=== PATIENT | male | born 1950 | race Two or more races ===

== ENCOUNTER 2023-06-29 18:40 | Inpatient (IN) | payer MEDICARE, OTHER ==
[~2023-06-29] VITALS: Ht 170.2 cm; Wt 81.6 kg
[2023-06-29 20:03] LABS: BASOPHILS # (AUTO) 0.1 K/uL (0.0-0.2); BASOPHILS % (AUTO) 1.1 % (0.0-2.0); EOSINOPHILS # (AUTO) 0.2 K/uL (0.0-0.7); EOSINOPHILS % (AUTO) 3.3 % (0.0-6.0); HEMATOCRIT 37 % (39-51); HEMOGLOBIN 12.5 g/dL (13.5-17.5); LYMPHOCYTES # (AUTO) 2.2 K/uL (0.8-4.8); LYMPHOCYTES % (AUTO) 40.9 % (20.0-44.0); MEAN CORPUSCULAR HEMOGLOBIN 37 PG (26.0-33.0); MEAN CORPUSCULAR HGB CONC 34 g/dl (31.0-36.0); MEAN CORPUSCULAR VOLUME 110 fL (80-96); MONOCYTES # (AUTO) 0.6 K/uL (0.1-1.30); MONOCYTES % (AUTO) 10.9 % (2.0-12.0); NEUTROPHILS # (AUTO) 2.4 K/uL (1.8-8.9); NEUTROPHILS % (AUTO) 43.8 % (43.0-81.0); PLATELET COUNT (AUTO) 162 K/uL (150-450); RED BLOOD CELL COUNT(AUTO) 3.35 MIL/uL (4.5-6.0); RED CELL DISTRIBUTION WIDTH 14.1 % (11.5-15.0); WHITE BLOOD COUNT (AUTO) 5.5 K/uL (4.3-11.0)
[2023-06-29 20:13] LABS: CARBON DIOXIDE 26 mmol/L (21-32); CHLORIDE 108 mmol/L (98-107); CREATININE 1.5 mg/dL (0.6-1.3); GLUCOSE 94 mg/dL (74-106); POTASSIUM 4.6 mmol/L (3.5-5.1); SODIUM SERUM 139 mmol/L (136-145); UREA NITROGEN, BLOOD 29 mg/dL (7-18)
[2023-06-29 20:15] LABS: APPEARANCE,URINE CLEAR (CLEAR); BILIRUBIN,URINE NEGATIVE (NEGATIVE); BLOOD, URINE NEGATIVE Ery/uL (NEGATIVE); COLOR,URINE YELLOW (YELLOW); KETONES,URINE TRACE mg/dL (NEGATIVE); LEUKOCYTE ESTERASE ,URINE NEGATIVE (NEGATIVE); NITRITE, URINE NEGATIVE (NEGATIVE); PROTEIN,URINE NEGATIVE (NEGATIVE); UGLUCOSE NEGATIVE (NEGATIVE); UROBILINOGEN,URINE 0.2 EU/dL (0.2)
[2023-06-29] MEDS ORDERED: OXYC5TAB3 PO (20:18)
[2023-06-29] MEDS ORDERED: MAGN400O6 PO (20:18)
[2023-06-29] MEDS ORDERED: AMIT10TA6 PO (20:18)
[2023-06-29] MEDS ORDERED: SODI45SP6 BNOSTRILS (20:18)
[2023-06-29] MEDS ORDERED: LOSA25TA27 PO (20:18)
[2023-06-29] MEDS ORDERED: MELA3TAB41 PO (20:18)
[2023-06-29] MEDS ORDERED: POLY15DR31 EACHEYE (20:18)
[2023-06-29] MEDS ORDERED: BISA10SU11 RC (20:18)
[2023-06-29] MEDS ORDERED: B CO1TAB6 PO (20:18)
[2023-06-29] MEDS ORDERED: MINE133E RC (20:18)
[2023-06-29] MEDS ORDERED: ATOR10TA PO (20:18)
[2023-06-29] MEDS ORDERED: POLY17PO4 PO (20:18)
[2023-06-29] MEDS ORDERED: ACET325T53 PO (20:18)
[2023-06-29] MEDS ORDERED: SENN-261 PO (20:18)
[2023-06-29] MEDS ORDERED: ASPI-1169 PO (20:18)
[2023-06-29] MEDS ORDERED: GABA300C PO (20:18)
[2023-06-29] MEDS ORDERED: ESCI5TAB PO (20:18)
[2023-06-29] MEDS ORDERED: VITS42.53 TP (20:18)
[2023-06-29 20:35] LABS: AMPHETAMINE, URINE NEGATIVE (NEGATIVE); BARBITURATE, URINE NEGATIVE (NEGATIVE); BENZODIAZEPINE, URINE NEGATIVE (NEGATIVE); CANNABINOID, URINE NEGATIVE (NEGATIVE); COCCAINE, URINE NEGATIVE (NEGATIVE); OPIATE, URINE NEGATIVE (NEGATIVE); PHENCYCLIDINE SCREEN,URINE NEGATIVE (NEGATIVE)
[2023-06-29 20:37] LABS: ALANINE AMINOTRANSFERASE 43 U/L (12-78); ALBUMIN 2.7 g/dL (3.4-5.0); ALCOHOL, BLOOD < 3 mg/dL (0-10); ALKALINE PHOSPHATASE 253 U/L (46-116); ASPARTATE AMINOTRANSFERASE 52 U/L (15-37); BILIRUBIN,DIRECT 0.3 mg/dL (0.0-0.2); BILIRUBIN,TOTAL 0.8 mg/dL (0.2-1.0); TOTAL PROTEIN, SERUM 8.1 g/dL (6.4-8.2)
[2023-06-29 20:38] LABS: ACETAMINOPHEN <10 ug/ml (10-30); SALICYLATE 1.8 mg/dL (2.8-20.0)
[2023-06-29 20:43] LABS: ANISOCYTOSIS 1+; EOSINOPHILS % (MANUAL) 4 % (0-4); LYMPHOCYTES % (MANUAL) 32 % (16-48); MONOCYTES % (MANUAL) 4 % (0-11.0); NEUTROPHILS % (MANUAL) 60 (42-76); PLATELET ESTIMATE ADEQU
[2023-06-29 20:44] LABS: ROULEAUX RARE
[2023-06-29 20:51] LABS: ADD URINE CULTURE NO; BACTERIA,URINE None seen /HPF (None Seen); RBC,URINE 0-2 /HPF (0-2); SQUAMOUS EPITHELIAL CELL,UR 0-2 /HPF (None Seen); WBC,URINE 0-2 /HPF (0-3)
[2023-06-30] MEDS ORDERED: BISACODYL SUPP (10 MG) 10 MG/SUPP.RECT SUPP.RECT RC PRN
[2023-06-30] MEDS ORDERED: POLYVINYL ALCOHOL 15 ML BOTTLE EACHEYE PRN (01:30)
[2023-06-30] MEDS ORDERED: QUETIAPINE FUMARATE 25 MG TABLET PO PRN (02:30)
[2023-06-30] MEDS ORDERED: ZOLPIDEM TARTRATE 5 MG TABLET PO PRN (02:30)
[2023-06-30] MEDS ORDERED: ACETAMINOPHEN 325 MG TABLET PO PRN (02:30)
[2023-06-30] MEDS ORDERED: MAG HYDROX/AL HYDROX/SIMETH 30 ML UDC PO PRN (02:30)
[2023-06-30] MEDS: BLOOD SUGAR DIAGNOSTIC 1 EACH STRIP IN ONE (02:56)
[2023-06-30] MEDS ORDERED: Z GUARD REMEDY 4 OZ OINT TP PRN (03:00)
[2023-06-30 03:12] VITALS: BP 123/76; TEMP 98; O2SAT 98
[2023-06-30 08:00] VITALS: BP 103/66; TEMP 97.5; O2SAT 98
[2023-06-30] MEDS: GABAPENTIN 300 MG CAPSULE PO SCH (08:59)
[2023-06-30] MEDS: ASPIRIN 81 MG TAB.CHEW PO SCH (08:59)
[2023-06-30] MEDS: POLYETHYLENE GLYCOL 3350 17 GM POWD.PACK PO SCH (08:59)
[2023-06-30] MEDS: SENNOSIDES 8.6 MG TABLET PO SCH (08:59)
[2023-06-30] MEDS: LOSARTAN POTASSIUM 25 MG TABLET PO SCH (09:00)
[2023-06-30 15:57] VITALS: BP 105/60; TEMP 98.8; O2SAT 98
[2023-06-30 17:07] LABS: THYROID STIMULATING HORMONE 1.579 uIU/mL (0.358-3.74)
[2023-06-30] MEDS: QUETIAPINE FUMARATE 25 MG TABLET PO SCH (21:07)
[2023-06-30] MEDS: ATORVASTATIN 10 MG TABLET PO SCH (21:39)
[2023-06-30 21:49] VITALS: BP 119/61; TEMP 98.1; O2SAT 97
[2023-06-30] MEDS ORDERED: AMITRIPTYLINE HCL 10 MG TABLET PO SCH (22:00)
[2023-06-30] MEDS: AMITRIPTYLINE HCL 25 MG TABLET PO SCH (22:05)
[2023-07-01 07:19] LABS: BASOPHILS # (AUTO) 0.1 K/uL (0.0-0.2); BASOPHILS % (AUTO) 1.2 % (0.0-2.0); EOSINOPHILS # (AUTO) 0.3 K/uL (0.0-0.7); EOSINOPHILS % (AUTO) 5.3 % (0.0-6.0); HEMATOCRIT 34 % (39-51); LYMPHOCYTES # (AUTO) 2.4 K/uL (0.8-4.8); LYMPHOCYTES % (AUTO) 45.6 % (20.0-44.0); MEAN CORPUSCULAR HEMOGLOBIN 38 PG (26.0-33.0); MEAN CORPUSCULAR HGB CONC 35 g/dl (31.0-36.0); MEAN CORPUSCULAR VOLUME 107 fL (80-96); MONOCYTES # (AUTO) 0.6 K/uL (0.1-1.30); NEUTROPHILS # (AUTO) 1.9 K/uL (1.8-8.9); NEUTROPHILS % (AUTO) 35.9 % (43.0-81.0); PLATELET COUNT (AUTO) 168 K/uL (150-450); RED BLOOD CELL COUNT(AUTO) 3.18 MIL/uL (4.5-6.0); RED CELL DISTRIBUTION WIDTH 13.6 % (11.5-15.0); WHITE BLOOD COUNT (AUTO) 5.3 K/uL (4.3-11.0)
[2023-07-01 07:43] LABS: CALCIUM, SERUM 8.2 mg/dL (8.5-10.1); CARBON DIOXIDE 23 mmol/L (21-32); CHLORIDE 111 mmol/L (98-107); CREATININE 1.4 mg/dL (0.6-1.3); GLUCOSE 81 mg/dL (74-106); SODIUM SERUM 141 mmol/L (136-145); UREA NITROGEN, BLOOD 20 mg/dL (7-18)
[2023-07-01 07:52] LABS: CHOLESTEROL 133 mg/dL (<200); HDL CHOLESTEROL 58 mg/dL (40-60); LDL 61 mg/dL (0-99); TRIGLYCERIDES 58 mg/dL (30-150)
[2023-07-01 10:41] VITALS: BP 109/53; TEMP 98.5; O2SAT 96
[2023-07-01 11:21] LABS: EOSINOPHILS % (MANUAL) 6 % (0-4); LYMPHOCYTES % (MANUAL) 51 % (16-48); MONOCYTES % (MANUAL) 10 % (0-11.0); NEUTROPHILS % (MANUAL) 33 (42-76); PLATELET ESTIMATE ADEQUATE
[2023-07-01 20:00] VITALS: BP 140/60; TEMP 98.3; O2SAT 98
[2023-07-02 20:51] VITALS: BP 108/69; TEMP 98.1; O2SAT 98
[2023-07-02] MEDS: MUPIROCIN OINT 2% 22 GM TUBE NS SCH (21:00)
[2023-07-02] MEDS: MAGNESIUM HYDROXIDE 30 ML UDC PO PRN (21:26)
[2023-07-02] MEDS: MIRTAZAPINE 15 MG TABLET PO SCH (21:34)
[2023-07-03 08:00] VITALS: BP 123/62; TEMP 97.5; O2SAT 99
[2023-07-03 15:30] VITALS: BP 93/60; TEMP 97.7; O2SAT 96
[2023-07-03 16:00] VITALS: BP 110/77
[2023-07-03 21:48] VITALS: BP 118/67; TEMP 98.2; O2SAT 98
[2023-07-03] MEDS: MIRTAZAPINE 15 MG TABLET PO SCH (21:52)
[2023-07-03] MEDS: oxyCODONE IR immediate release 5 MG TABLET PO PRN (21:59)
[2023-07-04 08:00] VITALS: BP 114/60; TEMP 97.9; O2SAT 96
[2023-07-04 16:00] VITALS: BP 109/53; TEMP 98.7; O2SAT 98
[2023-07-04 20:00] VITALS: BP 114/59; TEMP 97.9; O2SAT 100
[2023-07-04 20:34] VITALS: BP 114/59; TEMP 97.9; O2SAT 100
[2023-07-05 08:00] VITALS: BP 130/65; TEMP 98.2; O2SAT 100
[2023-07-05 16:00] VITALS: BP 110/64; TEMP 97.9; O2SAT 100
[2023-07-05 20:00] VITALS: BP 119/59; TEMP 98.1; O2SAT 97
[2023-07-05] MEDS: QUETIAPINE FUMARATE 25 MG TABLET PO SCH (22:50)
[2023-07-06] MEDS: AMITRIPTYLINE HCL 25 MG TABLET ONE (07:57)
[2023-07-06 08:00] VITALS: BP 108/58; TEMP 98; O2SAT 97
[2023-07-06 16:00] VITALS: BP 128/57; TEMP 98.2; O2SAT 99
[2023-07-06 20:00] VITALS: BP 105/55; TEMP 98; O2SAT 98
[2023-07-07 08:00] VITALS: BP 121/63; TEMP 98.7; O2SAT 97
[2023-07-07 16:00] VITALS: BP 106/53; TEMP 98; O2SAT 97
[2023-07-08 08:00] VITALS: BP 122/61; TEMP 97.9; O2SAT 94
[2023-07-08] MEDS: QUETIAPINE FUMARATE 25 MG TABLET PO SCH (08:41)
[2023-07-08 16:00] VITALS: BP 113/97; TEMP 97.7; O2SAT 99
[2023-07-08 22:23] VITALS: BP 104/58; TEMP 98; O2SAT 97
[2023-07-09 08:00] VITALS: BP 118/79; TEMP 98.6; O2SAT 100
[2023-07-09 16:00] VITALS: BP 105/57; TEMP 98.6; O2SAT 98
[2023-07-09 20:00] VITALS: BP 122/75; TEMP 97.5; O2SAT 96
[2023-07-10 08:00] VITALS: BP 138/52; TEMP 97.7; O2SAT 100
[2023-07-10 16:00] VITALS: BP 107/92; TEMP 97.8; O2SAT 96
[2023-07-10 20:39] VITALS: BP 110/51; TEMP 98.1; O2SAT 99
[2023-07-11 08:00] VITALS: BP 111/52; TEMP 98.6; O2SAT 98
[2023-07-11 08:51] VITALS: BP 112/58
== END 2023-07-11 14:54 | DRG 885 ==
LOC: ER 19:18 → GPS 06-30 00:51
PROVIDERS: ADMIT Psychiatry & Neurology Psychiatry; ATTEND Nurse Practitioner Family
DX: F31.89 Other bipolar disorder (principal); N18.30 Chronic kidney disease, stage 3 unspecified; N17.9 Acute kidney failure, unspecified; E44.0 Moderate protein-calorie malnutrition; I69.354 Hemiplegia and hemiparesis following cerebral infarction affecting left non-dominant side; G93.40 Encephalopathy, unspecified; F03.93 Unspecified dementia, unspecified severity, with mood disturbance; F29 Unspecified psychosis not due to a substance or known physiological condition; I12.9 Hypertensive chronic kidney disease with stage 1 through stage 4 chronic kidney disease, or unspecified chronic kidney disease; D53.9 Nutritional anemia, unspecified; E78.5 Hyperlipidemia, unspecified; E88.09 Other disorders of plasma-protein metabolism, not elsewhere classified; F31.9 Bipolar disorder, unspecified; K74.60 Unspecified cirrhosis of liver; M81.0 Age-related osteoporosis without current pathological fracture; N40.0 Benign prostatic hyperplasia without lower urinary tract symptoms; Z79.899 Other long term (current) drug therapy; Z86.15 Personal history of latent tuberculosis infection; Z87.891 Personal history of nicotine dependence; M19.90 Unspecified osteoarthritis, unspecified site; Z20.822 Contact with and (suspected) exposure to COVID-19; Z73.6 Limitation of activities due to disability; F39 Unspecified mood [affective] disorder; D63.8 Anemia in other chronic diseases classified elsewhere
CPT/HCPCS: 36415; 80048-TC; 80061-TC; 80076-TC; 81001; 82607-TC; 82728-TC; 82962-TC; 83540-TC; 84443-TC; 85025-TC; 87081-TC; 97112-TC; 97116-TC; 97530-TC; A6403; G0480